=== PATIENT | male | born 1975 | race Asian ===

== ENCOUNTER 2020-11-01 08:43 | Emergency (ER) | payer OTHER ==
[~2020-11-01] VITALS: Ht 167.6 cm; Wt 80.0 kg
[2020-11-01] MEDS ORDERED: IBUP-2029 MT (09:00)
[2020-11-01] MEDS ORDERED: METH-773 MT (09:00)
[2020-11-01] MEDS ORDERED: DIAZEPAM 5 MG TABLET PO ONE (09:00)
[2020-11-01] MEDS ORDERED: IBUPROFEN 600MG TABLET PO ONE (09:00)
[2020-11-01 10:50] VITALS: BP 149/91
== END 2020-11-01 10:51 | disposition home or self-care (01) ==
LOC: ER 09:07
DX: S16.1XXA Strain of muscle, fascia and tendon at neck level, initial encounter (principal); V49.88XA Car occupant (driver) (passenger) injured in other specified transport accidents, initial encounter; Y93.89 Activity, other specified; Y92.89 Other specified places as the place of occurrence of the external cause; Y99.8 Other external cause status
CPT/HCPCS: 72125; 99284; Z7610